=== PATIENT | male | born 1990 | race Hispanic/Latino ===

== ENCOUNTER 2022-12-14 09:05 | Emergency (ER) | payer SELFPAY ==
[2022-12-14] MEDS ORDERED: NA CHLORIDE 0.9% 500 ML ONE (09:32)
[2022-12-14 09:34] LABS: Absolute Lymphocytes (CBC) 1.5 K/uL (0.7-4.9); Hematocrit 45.2 % (39.6-49.0); Lymphocytes % 23.5 % (15.3-44.8); MCV 83.1 fL (80-100); MPV 7.7 fL (7.6-11.3); Platelets 230 thou/uL (152-406); RBC Red Blood Cell Count 5.44 M/uL (4.33-5.43)
[2022-12-14 09:53] LABS: Magnesium 2.5 mg/dL (1.6-2.4); Potassium 3.7 mEq/L (3.5-5.1); Troponin High Sensitivity 7.2 pg/mL (<58.9)
--- NOTE | 2022-12-14 10:24 | RAD REPORT ---
EXAM DESCRIPTION: Milo Single View12/14/2022 9:30 am CLINICAL HISTORY: PALPITATIONS COMPARISON: No comparisons TECHNIQUE: Portable AP view of the chest. FINDINGS: The lungs are clear. No pneumothorax or effusion. The cardiomediastinal contours are unre markable. IMPRESSION: No acute cardiopulmonary process.
--- NOTE | 2022-12-14 10:36 | ER ---
Nurse's Notes [facility] Name: Sergey Ozuna Jr Age: 32 yrs Sex: Male : 1990 Arrival Date: 12/14/2022 Time: 09:05 Bed 16 Private MD: Diagnosis: Palpitations Presentation: 12/14 09:12 Chief complaint: EMS states: "toned out for palpitations and heart racing. Medic on mb9 scene stated pts HR went into 120s. Pt denies SOB/CP/N/V. 18 g to right AC.". Coronavirus screen: Vaccine status: Patient reports receiving the 2nd dose of the covid vaccine. Ebola Screen: No symptoms or risks identified at this time. 09:12 Method Of Arrival: EMS: [place] [id number] 09:12 Initial Sepsis Screen: Does the patient meet any 2 criteria? No. Patient's initial mb9 sepsis screen is negative. Does the patient have a suspected source of infection? No. Patient's initial sepsis screen is negative. Risk Assessment: Do you want to hurt yourself or someone else? Patient reports no desire to harm self or others. Onset of symptoms was December 14, 2022. 09:12 Acuity: REG 3 mb9 Triage Assessment: 09:16 General: Appears in no apparent distress. Behavior is calm. Pain: Denies pain. Neuro: mb9 Ramirez Agitation-Sedation Scale (RASS): 0 - Alert and Calm Level of Consciousness is awake, alert, obeys commands, Oriented to person, place, time, situation, Appropriate for age. Cardiovascular: Reports palpitations, Denies chest pain, shortness of breath, Heart tones S1 S2 present Patient's skin is warm and dry. Rhythm is regular. Respiratory: Airway is patent Respiratory effort is even, unlabored, Respiratory pattern is regular, symmetrical, Breath sounds are clear bilaterally. Denies shortness of breath. GI: Abdomen is flat, non-distended, Bowel sounds present X 4 quads. Abd is soft and non tender X 4 quads. : No signs and/or symptoms were reported regarding the genitourinary system. Derm: Skin is pink, warm \\T\\ dry. Musculoskeletal: Range of motion: intact in all extremities. Historical: - Allergies: 09:16 No Known Allergies; mb9 - Home Meds: 09:16 None [Active]; mb9 - PMHx: 09:16 None; mb9 - PSHx: 09:16 None; mb9 - Immunization history:: Adult Immunizations up to date. - Social history:: Smoking status: Patient denies any tobacco usage or history of. - Family history:: not pertinent. - Hospitalizations: : No recent hospitalization is reported. Screenin:17 [facility] ED Fall Risk Assessment (Adult) History of falling in the last 3 months, mb9 including since admission No falls in past 3 months (0 pts) Confusion or Disorientation No (0 pts) Intoxicated or Sedated No (0 pts) Impaired Gait No (0 pts) Mobility Assist Device Used No (0 pt) Altered Elimination No (0 pt) Score/Fall Risk Level 0 - 2 = Low Risk Oriented to surroundings, Maintained a safe environment, Educated pt \\T\\ family on fall prevention, incl call for assistance when getting out of bed. Abuse screen: Denies threats or abuse. Nutritional screening: No deficits noted. Tuberculosis screening: No symptoms or risk factors identified. Assessment: 09:17 Reassessment: see triage assessment. mb9 10:25 Reassessment: No changes from previously documented assessment. Patient and/or family mb9 updated on plan of care and expected duration. Pain level reassessed. Patient is alert, oriented x 3, equal unlabored respirations, skin warm/dry/pink. Vital Signs: 09:12 BP 154 / 89; Pulse 69; Resp 18; Temp 98.8; Pulse Ox 100% ; Weight 77.11 kg; Height 5 mb9 ft. 7 in. ; Pain 0/10; 10:00 BP 129 / 83; Pulse 58; Resp 18; Pulse Ox 100% on R/A; mb9 10:59 BP 125 / 71; Pulse 61; Resp 16; Pulse Ox 100% on R/A; mb9 09:12 Body Mass Index 26.63 (77.11 kg, 170.18 cm) mb9 09:12 Pain Scale: Adult mb9 ED Course: 09:05 EKG done, by ED staff, reviewed by Aurelio Rios MD. mb9 09:10 Patient arrived in ED. ld1 09:12 Mary Haskins RN is Primary Nurse. mb9 09:13 Aurelio Rios MD is Attending Physician. rn 09:15 Triage completed. mb9 09:15 Arm band placed on. mb9 09:17 Placed in gown. Bed in low position. Call light in reach. Side rails up X 1. Client mb9 placed on continuous cardiac and pulse oximetry monitoring. NIBP monitoring applied. teletypesetter monitor on. 09:17 No provider procedures requiring assistance completed. Maintain EMS IV. Dressing mb9 intact. Good blood return noted. Site clean \\T\\ dry. Gauge \\T\\ site: 18 g right AC. 09:31 Basic Metabolic Panel Sent. mb9 09:31 CBC with Diff Sent. mb9 09:31 D-Dimer Sent. mb9 09:31 Magnesium Sent. mb9 09:31 NT PRO-BNP Sent. mb9 09:31 Troponin HS Sent. mb9 09:32 XRAY Chest (1 view) In Process Unspecified. EDMS 10:59 IV discontinued, intact, bleeding controlled, No redness/swelling at site. Pressure mb9 dressing applied. Administered Medications: 09:31 Drug: NS 0.9% IV 500 ml IV at bolus once Route: IV; Rate: bolus; Site: right mb9 antecubital; 10:59 Follow up: Response: No adverse reaction; IV Status: Completed infusion mb9 Medication: 09:17 VIS not applicable for this client. mb9 Outcome: 10:36 Discharge ordered by . rn 11:06 Patient left the ED. mb9 Signatures: Dispatcher [employer] EDMS Aurelio Rios MD MD rn Sims, Lauren, RN RN [email or web address] Mary Haskins RN RN mb9 Corrections: (The following items were deleted from the chart) 09:15 09:12 Pulse Ox 100%; 77.11 kg; Height 5 ft. 7 in.; BMI: 26.6; mb9 mb9
--- NOTE | 2022-12-14 10:36 | EDPHYS ---
Physician Documentation [facility] Name: Sergey Ozuna Jr Age: 32 yrs Sex: Male : 1990 Arrival Date: 12/14/2022 Time: 09:05 Bed 16 Private MD: ED Physician Aurelio Rios HPI: 12/14 09:15 This 32 yrs old Male presents to ER via EMS with unknown complaint. rn 09:15 This 32 yrs old Male presents to ER via EMS with unknown complaint. rn 09:15 The patient presents with a history of heart racing. Context: The symptoms occur with rn light activity. Onset: The symptoms/episode began/occurred just prior to arrival. Duration: The patient or guardian reports a single episode, that is now resolved. Modifying factors: The symptoms are aggravated by nothing. The symptoms are alleviated by nothing. Severity of symptoms: At their worst the symptoms were moderate in the emergency department the symptoms have improved. The patient has not experienced similar symptoms in the past. Patient reports at work and felt her heart race, counted his heart rate to 155 bpm, has not happened before, no stimulants or drug use. No family history of early cardiac disease at his age. No syncope or shortness of breath. Reports left bicep pain yesterday but not today. No chest pain. EMS called to evaluate patient and never had tachycardia in their care. Patient feels much better right now. No abdominal pain. No bleeding. No fever chills or other signs of infection.. Historical: - Allergies: 09:16 No Known Allergies; mb9 - Home Meds: 09:16 None [Active]; mb9 - PMHx: 09:16 None; mb9 - PSHx: 09:16 None; mb9 - Immunization history:: Adult Immunizations up to date. - Social history:: Smoking status: Patient denies any tobacco usage or history of. - Family history:: not pertinent. - Hospitalizations: : No recent hospitalization is reported. ROS: 09:15 Constitutional: Negative for fever, chills, and weight loss, Eyes: Negative for injury, rn pain, redness, and discharge, Neck: Negative for injury, pain, and swelling, Cardiovascular: Positive for palpitations Respiratory: Negative for shortness of breath, cough, wheezing, and pleuritic chest pain, Abdomen/GI: Negative for abdominal pain, nausea, vomiting, diarrhea, and constipation, Back: Negative for injury and pain, MS/Extremity: Negative for injury and deformity, Skin: Negative for injury, rash, and discoloration, Neuro: Negative for headache, weakness, numbness, tingling, and seizure, Exam: 09:15 Constitutional: This is a well developed, well nourished patient who is awake, alert, rn appears anxious Head/Face: Normocephalic, atraumatic. ENT: Dry mucous membranes Cardiovascular: Regular rate and rhythm with a normal S1 and S2. No gallops, murmurs. No JVD. No pulse deficits. Respiratory: Clear bilateral breath sounds. No increased work of breathing, no retractions or nasal flaring. Abdomen/GI: Soft, non-tender Skin: Warm, dry MS/ Extremity: Pulses equal, no cyanosis. Neuro: Awake and alert, GCS 15, oriented to person, place, time, and situation. 09:50 ECG was reviewed by the Attending Physician. rn Vital Signs: 09:12 BP 154 / 89; Pulse 69; Resp 18; Temp 98.8; Pulse Ox 100% ; Weight 77.11 kg; Height 5 mb9 ft. 7 in. ; Pain 0/10; 10:00 BP 129 / 83; Pulse 58; Resp 18; Pulse Ox 100% on R/A; mb9 10:59 BP 125 / 71; Pulse 61; Resp 16; Pulse Ox 100% on R/A; mb9 09:12 Body Mass Index 26.63 (77.11 kg, 170.18 cm) mb9 09:12 Pain Scale: Adult mb9 MDM: 09:13 Patient medically screened. rn 09:55 Independent interpretation of the following test(s) in the Emergency Department EKG: rn See my EKG interpretation above X-Ray: My interpretation is Chest x-ray images negative for pneumonia per my interpretation. 10:35 Differential diagnosis: arrythmia, dehydration, stress disorder. Data reviewed: vital rn signs, nurses notes, lab test result(s), EKG, radiologic studies, plain films, and as a result, I will discharge patient. Counseling: I had a detailed discussion with the patient and/or guardian regarding the historical points, exam findings, and any diagnostic results supporting the discharge/admit diagnosis, lab results, radiology results, the need for outpatient follow up, to return to the emergency department if symptoms worsen or persist or if there are any questions or concerns that arise at home. Response to treatment: the patient's symptoms have resolved after treatment, the patient's condition has returned to base line, and as a result, I will discharge patient. Special discussion: I discussed with the patient/guardian in detail that at this point there is no indication for admission to the hospital. It is understood, however, that if the symptoms persist or worsen the patient needs to return immediately for re-evaluation. Based on the history and exam findings, there is no indication for further emergent testing or inpatient evaluation. I discussed with the patient/guardian the need to see the head of store operations for further evaluation of the symptoms. I discussed with the patient/guardian the need to see the primary care provider for further evaluation of the symptoms. 12/14 09:13 Order name: Basic Metabolic Panel; Complete Time: 12/14 09:13 Order name: CBC with Diff; Complete Time: 12/14 09:13 Order name: D-Dimer; Complete Time: 12/14 09:13 Order name: Magnesium; Complete Time: 12/14 09:13 Order name: NT PRO-BNP; Complete Time: 12/14 09:13 Order name: Troponin HS; Complete Time: 12/14 09:13 Order name: XRAY Chest (1 view); Complete Time: 10:35 rn 12/14 09:13 Order name: EKG; Complete Time: :14 12/14 09:13 Order name: Cardiac monitoring; Complete Time: 12/14 09:13 Order name: EKG - Nurse/Tech; Complete Time: :12/14 09:13 Order name: IV Saline Lock; Complete Time: :12/14 09:13 Order name: Labs collected and sent; Complete Time: 12/14 09:13 Order name: O2 Per Protocol; Complete Time: 12/14 09:13 Order name: O2 Sat Monitoring; Complete Time: : rn EC:50 Rate is 66 beats/min. Rhythm is regular. QRS [place] is Normal. OK interval is normal. QRS rn interval is normal. QT interval is normal. No Q waves. T waves are Normal. No ST changes noted. Clinical impression: Normal ECG. Interpreted by me. Reviewed by me. Administered Medications: 09:31 Drug: NS 0.9% IV 500 ml IV at bolus once Route: IV; Rate: bolus; Site: right mb9 antecubital; 10:59 Follow up: Response: No adverse reaction; IV Status: Completed infusion mb9 Disposition Summary: 12/14/22 10:36 Discharge Ordered Notes: Location: Home rn Problem: new rn Symptoms: have improved rn Condition: Stable rn Diagnosis - Palpitations rn Followup: rn - With: Private Physician - When: As needed - Reason: Recheck today's complaints, Re-evaluation by your physician Discharge Instructions: - Discharge Summary Sheet rn - Palpitations rn Forms: - Medication Reconciliation Form rn - Thank You Letter rn - Antibiotic rn visiting - Prescription Opioid Use rn - Patient Portal Instructions rn - Leadership Thank You Letter rn - Work release form [email or web address] Signatures: Dispatcher [employer] Aurelio Maldonado MD MD rn Breneman, Mary Beth RN RN [facility]
[2022-12-14 11:10] VITALS: TEMP 98.8; O2SAT 100
[2022-12-14 11:13] VITALS: BP 125/71
--- NOTE | 2022-12-15 14:36 | EKG ---
Test Date: 2022-12-14 Test Time: 09:10:48 Hull Builder: MB MEASUREMENT RESULTS: Intervals: Rate: 66 NE: 186 QRSD: 92 QT: 372 QTc: 389 Friedens: P: 3 NE: 186 QRS: 54 T: 42 INTERPRETIVE STATEMENTS: Normal sinus rhythm Normal ECG No previous ECG available for comparison Electronically Signed On 12-15-22 14:32:34 CDT by Magnus Mix
== END 2022-12-14 11:06 | disposition home or self-care (01) ==
LOC: ER 09:05
DX: R00.2 Palpitations (principal)
CPT/HCPCS: 36415; 71045; 80048; 83735; 83880; 84484; 85025; 85379; 93005; J7040